=== PATIENT | female | born 1995 | race Caucasian/White ===

== ENCOUNTER → 2018-02-23 | Outpatient (CLI) | payer OTHER ==
--- NOTE | 2018-02-23 14:32 | RADIOLOGY REPORT (SQ) ---
EXAM DESCRIPTION: HYSTEROSALPINGOGRAM; HYSTERO CATH/INJECTION COMPLETED DATE/TIME: 02/23/2018 1:54 pm REASON FOR STUDY: INFERTILITY N97.9 FEMALE INFERTILITY, UNSPECIFIED COMPARISON: None. PROCEDURE: PRE-PROCEDURE: Procedure was explained to the patient. She was told to expect cramping du ring the procedure, and possible spotting post procedure. PROCEDURE: The cervix was prepped in sterile fashion. Under direct visual inspection, the cervix was cannulated with the hysterosalpingogram catheter and contrast injected. TECHNIQUE: Temporal fluoroscopic images acquired during the procedure stored to PACS. FLUOROSCOPY TIME: Less than 3 seconds 10 digital radiographic images saved to PACS. LIMITATIONS: None. FINDINGS: UTERUS: No identified anomalies. No synechia. RIGHT ADNEXA: Normal size fallopian tube. Free spill of contrast into the peritoneal cavity. LEFT ADNEXA: Normal size fallopian tube. Free spill of contrast into the peritoneal cavity. POST PROCEDURE: The patient tolerated the procedure with no adverse effects. IMPRESSION: NORMAL HYSTEROSALPINGOGRAM. COMMENT: Quality ID 145: Final reports for procedures using fluoroscopy that document radiation exp osure indices, or exposure time and number of fluorographic images (if radiation exposure indices are not available) TECHNICAL DOCUMENTATION: JOB ID: [id number] [employer]- All Rights Reserved Reading location - IP/workstation name: [email or web address]
--- NOTE | 2018-02-23 14:32 | RADIOLOGY REPORT (SQ) ---
EXAM DESCRIPTION: HYSTEROSALPINGOGRAM; HYSTERO CATH/INJECTION COMPLETED DATE/TIME: 02/23/2018 1:54 pm REASON FOR STUDY: INFERTILITY N97.9 FEMALE INFERTILITY, UNSPECIFIED COMPARISON: None. PROCEDURE: PRE-PROCEDURE: Procedure was explained to the patient. She was told to expect cramping du ring the procedure, and possible spotting post procedure. PROCEDURE: The cervix was prepped in sterile fashion. Under direct visual inspection, the cervix was cannulated with the hysterosalpingogram catheter and contrast injected. TECHNIQUE: Temporal fluoroscopic images acquired during the procedure stored to PACS. FLUOROSCOPY TIME: Less than 3 seconds 10 digital radiographic images saved to PACS. LIMITATIONS: None. FINDINGS: UTERUS: No identified anomalies. No synechia. RIGHT ADNEXA: Normal size fallopian tube. Free spill of contrast into the peritoneal cavity. LEFT ADNEXA: Normal size fallopian tube. Free spill of contrast into the peritoneal cavity. POST PROCEDURE: The patient tolerated the procedure with no adverse effects. IMPRESSION: NORMAL HYSTEROSALPINGOGRAM. COMMENT: Quality ID 145: Final reports for procedures using fluoroscopy that document radiation exp osure indices, or exposure time and number of fluorographic images (if radiation exposure indices are not available) TECHNICAL DOCUMENTATION: JOB ID: [id number] [employer]- All Rights Reserved Reading location - IP/workstation name: [email or web address]
== END ==
LOC: RAD 12:46
PROVIDERS: ATTEND Student in an Organized Health Care Education/Training Program
DX: N97.9 Female infertility, unspecified (principal)
CPT/HCPCS: 58340; 74740

== ENCOUNTER 2018-08-08 17:37 | Emergency (ER) | payer OTHER ==
--- NOTE | 2018-08-08 19:45 | ER Document Report ---
ED Medical Screen (RME) - General Chief Complaint: Vag Bleeding, +preg <12wks Stated Complaint: VAGINAL BLEEDING Time Seen by Provider: 08/08/18 19:37 Primary Care Provider: RUPESH KISER MD [Primary Care Provider] - Follow up as needed Mode of Arrival: Ambulatory Information source: Patient TRAVEL OUTSIDE OF THE [place] IN LAST 30 DAYS: No - HPI Notes: 08/08/18 19:45 23 yr old female 18 weeks 1 para 0 presents to the ED with complaints of 2 episodes of vaginal bleeding after urinating today, denies any vaginal cramping vaginal pain pelvic pain. Denies any nausea vomiting diarrhea, denies any trauma to abdomen, states she can feel baby moving, denies does not have a history of bleeding disorders, miscarriages. Patient is established with Dr. iKser at [facility] associated [employer]. Has any fevers chills, denies any trauma. exam: PHYSICAL EXAMINATION: ual. No wheezes rales or rhonchi. HEART: Regular rate and rhythm without murmurs ABDOMEN: Soft, nontender, nondistended abdomen. No guarding, no rebound. No masses appreciated. no cva tenderness on palpation Female : deferred labs initiated, u/s ob, heart rate and will be seen in main ER. pt is not in any distress. I have greeted and performed a rapid initial assessment of this patient. A comprehensive ED assessment and evaluation of the patient, analysis of test results and completion of medical decision making process will be conducted by an additional ED providers. - Related Data Allergies/Adverse Reactions: No Known Allergies Allergy (Verified 08/08/18 19:37) Physical Exam - Vital signs Vitals: Temp Pulse Resp BP Pulse Ox 97.8 F 118 H 20 134/74 H 99 08/08/18 17:47 08/08/18 17:47 08/08/18 17:47 08/08/18 17:47 08/08/18 17:47 Course - Vital Signs Vital signs: Temp Pulse Resp BP Pulse Ox 97.8 F 118 H 20 134/74 H 99 08/08/18 17:47 08/08/18 17:47 08/08/18 17:47 08/08/18 17:47 08/08/18 17:47 Doctor's Discharge - Discharge Referrals: RUPESH KISER MD [Primary Care Provider] - Follow up as needed
[2018-08-08 21:08] LABS: ABSOLUTE BASOPHILS # (AUTO) 0.1 10^3/uL (0.0-0.2); ABSOLUTE EOSINOPHILS # (AUTO) 0.1 10^3/uL (0.0-0.6); ABSOLUTE MONOCYTES (AUTO) 0.8 10^3/uL (0.1-1.4); ABSOLUTE NEUT (AUTO) 11.1 10^3/uL (1.7-8.2); BASOPHILS % (AUTO) 0.8 % (0-2); EOSINOPHILS % (AUTO) 0.5 % (0-6); HEMATOCRIT 33.8 % (36.0-47.0); HEMOGLOBIN 11.8 g/dL (12.0-15.5); LYMPHOCYTES % (AUTO) 19.6 % (13-45); MEAN CORPUSCULAR HEMOGLOBIN 28.2 pg (27.0-33.4); MEAN CORPUSCULAR HGB CONC 34.8 g/dL (32.0-36.0); MEAN CORPUSCULAR VOLUME 81 fl (80-97); MONOCYTES % (AUTO) 5.2 % (3-13); PLATELET COUNT 289 10^3/uL (150-450); RED BLOOD COUNT 4.17 10^6/uL (3.72-5.28); RED CELL DISTRIBUTION WIDTH 14.1 % (11.5-14.0); SEGMENTED NEUTROPHILS % (AUTO) 73.9 % (42-78); TOTAL CELLS COUNTED % (AUTO) 100 %; WHITE BLOOD COUNT 15.1 10^3/uL (4.0-10.5)
[2018-08-08 21:21] LABS: APPEARANCE,URINE CLEAR; BILIRUBIN,URINE NEGATIVE (NEGATIVE); COLOR,URINE YELLOW; GLUCOSE, URINE NEGATIVE (NEGATIVE); KETONES,URINE NEGATIVE (NEGATIVE); LEUKOCYTE ESTERASE,URINE NEGATIVE (NEGATIVE); NITRITE,URINE NEGATIVE (NEGATIVE); PROTEIN,URINE NEGATIVE (NEGATIVE)
[2018-08-08 21:28] LABS: ALANINE AMINOTRANSFERASE 59 U/L (9-52); ALBUMIN 3.7 g/dL (3.5-5.0); ALKALINE PHOSPHATASE 78 U/L (38-126); ANION GAP 8 (5-19); ASPARTATE AMINO TRANSFERASE 27 U/L (14-36); BILIRUBIN,DIRECT 0.2 mg/dL (0.0-0.4); BILIRUBIN,TOTAL 0.2 mg/dL (0.2-1.3); BLOOD UREA NITROGEN 11 mg/dL (7-20); CALCIUM 9.3 mg/dL (8.4-10.2); CARBON DIOXIDE 24 mmol/L (22-30); CHLORIDE 103 mmol/L (98-107); POTASSIUM 3.9 mmol/L (3.6-5.0); TOTAL PROTEIN 6.9 g/dL (6.3-8.2)
--- NOTE | 2018-08-08 22:14 | RADIOLOGY REPORT (SQ) ---
EXAM DESCRIPTION: US FOLLOW UP COMPLETED DATE/TME: 08/08/2018 19:47 CLINICAL HISTORY: 23 years, Female, 18w preg with vaginal bleeding COMPARISON: None. TECHNIQUE: Transabdominal ultrasound of the pelvis was performed. LIMITATIONS: None. FINDINGS: Cervix is closed, measuring 2.1 cm in length. Placenta is posterior, grade 1. presentation is breech. A single intrauterine is identified with measurements as follows: Head circumference: 16.38 cm heart rate: 165 bpm Femoral length: 2.63 cm Abdominal circumference: 14.05 cm Largest vertical pocket of amniotic fluid: 4.3 cm Both upper and lower extremities were visible. The bladder, stomach, and spine were also visible. Estimated gestational age is 18 weeks and 6 days. Ultrasound estimated date of delivery is 01/03/2019. IMPRESSION: Single viable intrauterine , as above. No acute sonographic abnormality. Continued routine surveillance is suggested. copyright 2010 [employer]- All Rights Reserved
[2018-08-08 22:16] LABS: GLUCOSE 68 mg/dL (75-110)
--- NOTE | 2018-08-08 23:00 | ER Document Report ---
ED General - General Chief Complaint: Vag Bleeding, +preg <12wks Stated Complaint: VAGINAL BLEEDING Time Seen by Provider: 08/08/18 19:37 Primary Care Provider: RUPESH KISER MD [Primary Care Provider] - Follow up as needed Mode of Arrival: Ambulatory Notes: Patient is a 23-year-old female at 18 weeks by ultrasound who presents with a small amount of vaginal bleeding that started approximately 1 hour prior to arrival. Bleeding has since stopped. No associated cramping or pain to the lower abdomen. No history of similar symptoms during this . Symptoms started abruptly, ended without intervention. No obvious triggering factor. Has not seen her [employer]IE REPA[employer] regarding today's concerns. Denies any trauma to the abdomen. Regards symptoms as being mild. TRAVEL OUTSIDE OF THE [place] IN LAST 30 DAYS: No - Related Data Allergies/Adverse Reactions: No Known Allergies Allergy (Verified 08/08/18 19:37) Past Medical History - General Information source: Patient - Social History Smoking Status: Never Smoker Frequency of alcohol use: None Drug Abuse: None Lives with: Spouse/Significant other Family History: Reviewed & Not Pertinent Patient has suicidal ideation: No Patient has homicidal ideation: No Renal/ Medical History: Denies: Hx Peritoneal Dialysis Review of Systems - Review of Systems Notes: Constitutional: Negative for fever. HENT: Negative for sore throat. Eyes: Negative for visual changes. Cardiovascular: Negative for chest pain. Respiratory: Negative for shortness of breath. Gastrointestinal: Negative for abdominal pain, vomiting or diarrhea. Genitourinary: Positive for vaginal bleeding Musculoskeletal: Negative for back pain. Skin: Negative for rash. Neurological: Negative for headaches, weakness or numbness. 10 point ROS negative except as marked above and in HPI. Physical Exam - Vital signs Vitals: Temp Pulse Resp BP Pulse Ox 97.8 F 118 H 20 134/74 H 99 08/08/18 17:47 08/08/18 17:47 08/08/18 17:47 08/08/18 17:47 08/08/18 17:47 Interpretation: Tachycardic Notes: PHYSICAL EXAMINATION: GENERAL: Well-appearing, well-nourished and in no acute distress. HEAD: Atraumatic, normocephalic. EYES: Pupils equal round and reactive to light, extraocular movements intact, sclera anicteric, conjunctiva are normal. ENT: nares patent, oropharynx clear without exudates. Moist mucous membranes. NECK: Normal range of motion, supple without lymphadenopathy LUNGS: Breath sounds clear to auscultation bilaterally and equal. No wheezes rales or rhonchi. HEART: Regular rate and rhythm without murmurs ABDOMEN: Soft, gravid uterus, nontender, normoactive bowel sounds. No guarding, no rebound. No masses appreciated. EXTREMITIES: Normal range of motion, no pitting or edema. No cyanosis. NEUROLOGICAL: No focal neurological deficits. Moves all extremities spontaneously and on command. PSYCH: Normal mood, normal affect. SKIN: Warm, Dry, normal turgor, no rashes or lesions noted. Course - Re-evaluation Re-evalutation: 08/08/18 23:00 Patient presents with a mild amount of vaginal bleeding in the setting of a second trimester . Ultrasound does demonstrate a viable intrauterine with active heart rate. No active bleeding at time of presentation. She is Rh positive. Patient's abdominal exam is otherwise benign without any focal tenderness. I do not suspect an acute appendicitis, pyelonephritis, cystitis, or bowel obstruction. At this time will discharge with return precautions and follow-up recommendations. Verbal discharge instructions given a the bedside and opportunity for questions given. Medication warnings reviewed. Patient is in agreement with this plan and has verbalized understanding of return precautions and the need for primary care follow-up in the next 24-72 hours. - Vital Signs Vital signs: Temp Pulse Resp BP Pulse Ox 97.8 F 118 H 20 134/74 H 99 08/08/18 17:47 08/08/18 17:47 08/08/18 17:47 08/08/18 17:47 08/08/18 17:47 - Laboratory Result Diagrams: 08/08/18 20:56 08/08/18 20:56 Laboratory results interpreted by me: 08/08/18 08/08/18 08/08/18 20:56 20:56 20:56 WBC 15.1 H Hgb 11.8 L Hct 33.8 L RDW 14.1 H Absolute Neutrophils 11.1 H Sodium 135.0 L Creatinine 0.46 L Glucose 68 L ALT 59 H Beta HCG, Quant 33693.00 H Urine Urobilinogen 2.0 H Urine Ascorbic Acid 40 H - Diagnostic Test Radiology reviewed: Reports reviewed Discharge - Discharge Clinical Impression: Vaginal bleeding during , Second trimester Condition: Good Disposition: HOME, SELF-CARE Additional Instructions: Your ultrasound today shows a living intrauterine . Please follow closely with your primary care [employer]. Please return if you develop severe abdominal pain, bleeding that goes through more than 2 pads for more than 2 hours, pass out, or have any other symptoms that are concerning to you. Please follow-up closely with your OBGYN regarding todays visit. Referrals: RUPESH KISER MD [Primary Care Provider] - Follow up as needed
[2018-08-08 23:11] VITALS: BP 128/72
== END 2018-08-08 23:07 | disposition home or self-care (01) ==
LOC: ER 17:37
DX: O46.92 Antepartum hemorrhage, unspecified, second trimester (principal); Z3A.18 18 weeks gestation of pregnancy
CPT/HCPCS: 36415; 76805; 80053; 81001; 82962; 84702; 85025; 86900; 86901; 93976; 99284

== ENCOUNTER 2018-09-22 13:14 | Emergency (ER) | payer OTHER ==
[2018-09-22] MEDS ORDERED: NORMAL SALINE 1000 ML 1,000 ML IV ONE ×2 (13:23→13:27)
[2018-09-22] MEDS ORDERED: METOCLOPRAMIDE HCL INJ/PF 10 MG/2 ML SDV IV ONE (13:27)
--- NOTE | 2018-09-22 13:29 | ER Document Report ---
ED Medical Screen (RME) - General Chief Complaint: Nausea/Vomiting Stated Complaint: VOMITING Time Seen by Provider: 09/22/18 13:21 Primary Care Provider: RUPESH KISER MD [Primary Care Provider] - Follow up as needed Notes: Patient is a 23-year-old female currently 25 weeks started with nausea vomiting around 1 AM. She has been unable to keep any fluids down since. Patient states she still feels the baby kicking and is denying any abdominal pain, vaginal discharge or bleeding. HEART: Tachycardic rate and rhythm. No murmur ABDOMEN: Soft, non-tender, obviously gravid. Non-distended. Bowel sounds present in all 4 quadrants. I have greeted and performed a rapid initial assessment of this patient. A comprehensive ED assessment and evaluation of the patient, analysis of test results and completion of the medical decision making process will be conducted by additional ED providers. This medical record was dictated with voice recognizing software. There may be grammatical, syntax errors that are unintended. TRAVEL OUTSIDE OF THE [place] IN LAST 30 DAYS: No - Related Data Allergies/Adverse Reactions: No Known Allergies Allergy (Verified 09/22/18 13:15) Past Medical History Renal/ Medical History: Denies: Hx Peritoneal Dialysis Physical Exam - Vital signs Vitals: Temp Pulse Resp BP Pulse Ox 98.2 F 133 H 20 134/77 H 98 09/22/18 13:19 09/22/18 13:19 09/22/18 13:19 09/22/18 13:19 09/22/18 13:19 Course - Vital Signs Vital signs: Temp Pulse Resp BP Pulse Ox 98.2 F 133 H 20 134/77 H 98 09/22/18 13:19 09/22/18 13:19 09/22/18 13:19 09/22/18 13:19 09/22/18 13:19 Doctor's Discharge - Discharge Referrals: RUPESH KISER MD [Primary Care Provider] - Follow up as needed
[2018-09-22 13:53] LABS: ABSOLUTE LYMPHOCYTES (AUTO) 0.8 10^3/uL (0.5-4.7); ABSOLUTE MONOCYTES (AUTO) 0.7 10^3/uL (0.1-1.4); ABSOLUTE NEUT (AUTO) 10.2 10^3/uL (1.7-8.2); BASOPHILS % (AUTO) 0.2 % (0-2); EOSINOPHILS % (AUTO) 0.1 % (0-6); HEMATOCRIT 33.2 % (36.0-47.0); HEMOGLOBIN 11.3 g/dL (12.0-15.5); LYMPHOCYTES % (AUTO) 7.1 % (13-45); MEAN CORPUSCULAR HEMOGLOBIN 27.4 pg (27.0-33.4); MEAN CORPUSCULAR HGB CONC 34.1 g/dL (32.0-36.0); MEAN CORPUSCULAR VOLUME 80 fl (80-97); MONOCYTES % (AUTO) 6.2 % (3-13); PLATELET COUNT 287 10^3/uL (150-450); RED BLOOD COUNT 4.14 10^6/uL (3.72-5.28); RED CELL DISTRIBUTION WIDTH 15.3 % (11.5-14.0); SEGMENTED NEUTROPHILS % (AUTO) 86.4 % (42-78); TOTAL CELLS COUNTED % (AUTO) 100 %; WHITE BLOOD COUNT 11.8 10^3/uL (4.0-10.5)
[2018-09-22 13:59] LABS: APPEARANCE,URINE SLIGHTLY-CLOUDY; BILIRUBIN,URINE NEGATIVE (NEGATIVE); COLOR,URINE YELLOW; GLUCOSE, URINE NEGATIVE (NEGATIVE); KETONES,URINE 20 mg/dL (NEGATIVE); LEUKOCYTE ESTERASE,URINE NEGATIVE (NEGATIVE); NITRITE,URINE NEGATIVE (NEGATIVE); PROTEIN,URINE 30 mg/dL (NEGATIVE); URINE SPECIFIC GRAVITY 1.025; UROBILINOGEN,URINE NEGATIVE mg/dL (<2.0)
[2018-09-22 14:16] LABS: ANION GAP 10 (5-19); BLOOD UREA NITROGEN 8 mg/dL (7-20); CALCIUM 8.9 mg/dL (8.4-10.2); CARBON DIOXIDE 25 mmol/L (22-30); CHLORIDE 103 mmol/L (98-107); GLUCOSE 85 mg/dL (75-110); POTASSIUM 3.8 mmol/L (3.6-5.0); SODIUM 137.8 mmol/L (137-145)
--- NOTE | 2018-09-22 14:16 | ER Document Report ---
ED General - General Chief Complaint: Nausea/Vomiting Stated Complaint: VOMITING Time Seen by Provider: 09/22/18 13:21 Primary Care Provider: RUPESH KISER MD [Primary Care Provider] - Follow up as needed Mode of Arrival: Ambulatory Information source: Patient TRAVEL OUTSIDE OF THE [place] IN LAST 30 DAYS: No - HPI Patient complains to provider of: Vomiting and Onset: This morning - 0100 Onset/Duration: Sudden Quality of pain: No pain Severity: None Pain Level: Denies Associated symptoms: None Exacerbated by: Denies Relieved by: Denies Similar symptoms previously: No Recently seen / treated by doctor: No Notes: 23-year-old female primigravida at 25 weeks gestation presents with intractable nausea and vomiting since 1:00 this morning. Patient feels like her heart is beating fast and she feels weak and dizzy. She does not have any previous history of nausea in this . She is not having any abdominal pain. Not having any vaginal bleeding. - Related Data Allergies/Adverse Reactions: No Known Allergies Allergy (Verified 09/22/18 13:15) Past Medical History - General Information source: Patient - Social History Smoking Status: Never Smoker Chew tobacco use (# tins/day): No Frequency of alcohol use: None Drug Abuse: None Family History: Reviewed & Not Pertinent Patient has suicidal ideation: No Patient has homicidal ideation: No Neurological Medical History: Reports: Hx Migraine Renal/ Medical History: Denies: Hx Peritoneal Dialysis Review of Systems - Review of Systems Notes: Constitutional: No fevers. No chills. EENT: No eye redness. No eye pain. No ear pain. No sore throat. Cardiovascular: No chest pain. No palpitations. Respiratory: No cough. No shortness of breath. No respiratory distress. Gastrointestinal: No abdominal pain. Positive nausea and vomiting. Negative diarrhea Genitourinary: Atraumatic. No lesions. No pain. No discharge. Musculoskeletal: Atraumatic. No swelling. No deformities. Skin: No rash or lesions. Lymphatic: No swollen lymph nodes. Neurologic: No headache. No syncope. Psychiatric: No suicidal or homicidal ideation. Physical Exam - Vital signs Vitals: Temp Pulse Resp BP Pulse Ox 98.2 F 133 H 20 134/77 H 98 09/22/18 13:19 09/22/18 13:19 09/22/18 13:19 09/22/18 13:19 09/22/18 13:19 - Notes Notes: General: Well-developed, well-nourished. In no acute distress. Non-toxic appearing. Cardiac: Well-perfused. Tachycardic with regular rhythm. No murmurs, rubs, or gallops. Pulmonary: No respiratory distress. No cyanosis. Bilateral lung calles are clear to auscultation. Abdominal: Gravid abdomen. Nontender bowel sounds present all 4 quadrants HEENT: Head is atraumatic. Conjunctivae not reddened. No tearing. PERRL. EOMI. Orbits atraumatic. No periorbital swelling or erythema. Oropharynx is without erythema, swelling, or exudates. Neck: Supple. No adenopathy. No meningismus. Dermatologic: Warm with good turgor. No rash. Atraumatic. Chest: Atraumatic. No chest wall tenderness to palpation. Musculoskeletal: Moves all extremities well. No range of motion deficits. no muscular or joint tenderness. No paraspinal muscle tenderness. no midline spinal tenderness or step-off. Genitourinary: Examination deferred Neurologic: No gross neurologic deficits. Psychiatric: Normal mood. Course - Re-evaluation Re-evalutation: 09/22/18 14:14 Patient with a sudden onset of vomiting in . She does not appear to be having any related complications at this time. She is tachycardic. We will follow through with orders that were given for Reglan and 2 L normal saline. We will check her labs and reassess shortly. 09/22/18 14:52 Feeling better. Drinking water with no complications. Heart rate is normal. R eviewed labs and those were normal. No electrolyte repletion necessary. Will discharge home on Reglan - Vital Signs Vital signs: Temp Pulse Resp BP Pulse Ox 99.0 F 99 16 121/67 98 09/22/18 14:33 09/22/18 14:33 09/22/18 14:33 09/22/18 14:33 09/22/18 14:33 - Laboratory Result Diagrams: 09/22/18 13:35 09/22/18 13:35 Laboratory results interpreted by me: 09/22/18 09/22/18 13:35 13:35 WBC 11.8 H Hgb 11.3 L Hct 33.2 L RDW 15.3 H Seg Neutrophils % 86.4 H Lymphocytes % 7.1 L Absolute Neutrophils 10.2 H Urine Protein 30 H Urine Ketones 20 H Discharge - Discharge Clinical Impression: Nausea and vomiting during Condition: Good Disposition: HOME, SELF-CARE Instructions: Antinausea Medication ([facility]), Intravenous (IV) Fluids ([facility]), Reglan ([facility]) Prescriptions: Metoclopramide HCl [Reglan 10 mg Tablet] 1 tab PO Q6HP PRN #20 tablet PRN Reason: Referrals: RUPESH KISER MD [Primary Care Provider] - Follow up as needed
[2018-09-22 14:34] VITALS: BP 121/67
== END 2018-09-22 15:25 | disposition home or self-care (01) ==
LOC: ER 13:14
DX: O21.2 Late vomiting of pregnancy (principal); O26.892 Other specified pregnancy related conditions, second trimester; R42 Dizziness and giddiness; R53.1 Weakness; R00.0 Tachycardia, unspecified; Z3A.25 25 weeks gestation of pregnancy
CPT/HCPCS: 99284; 96361; 96374; 36415; 85025; 80048; 81001; J2765; J7030

== ENCOUNTER 2018-09-23 21:22 | Emergency (ER) | payer OTHER ==
[2018-09-23 22:16] VITALS: BP 130/70
[2018-09-24] MEDS ORDERED: NORMAL SALINE 1000 ML 1,000 ML IV ONE (00:02)
--- NOTE | 2018-09-24 00:04 | ER Document Report ---
ED Medical Screen (RME) - General Chief Complaint: Nausea/Vomiting/Diarrhea Stated Complaint: VOMITING Time Seen by Provider: 09/24/18 00:01 Notes: 23-year-old female G1, P0 at 25 weeks gestation, chief complaint of diarrhea. States she was seen yesterday for vomiting, went home, vomiting resolved but today she has had at least 15 episodes of watery diarrhea. She denies any abdominal pain, fever, bleeding. She is feeling baby move. Denies recent antibiotics. TRAVEL OUTSIDE OF THE [place] IN LAST 30 DAYS: No - Related Data Allergies/Adverse Reactions: No Known Allergies Allergy (Verified 09/22/18 13:15) Past Medical History Neurological Medical History: Reports: Hx Migraine Renal/ Medical History: Denies: Hx Peritoneal Dialysis Physical Exam - Vital signs Vitals: Temp Pulse Resp BP Pulse Ox 98.2 F 114 H 22 H 130/70 H 99 09/23/18 22:14 09/23/18 22:14 09/23/18 22:14 09/23/18 22:14 09/23/18 22:14 - Cardiovascular Rhythm: Regular, Tachycardia Heart sounds: Normal auscultation, S1 appreciated, S2 appreciated - Abdominal Inspection: Gravid female Bowel sounds: Normal Tenderness: Nontender. No: Tender, Guarding Course - Re-evaluation Re-evalutation: Patient is tachycardic, presumably dehydrated. Well-appearing otherwise with no abdominal pain. As result she will have work-up and treatment here instead of labor and delivery at this time. I have greeted and performed a rapid initial assessment of this patient. A comprehensive ED assessment and evaluation of the patient, analysis of test results and completion of the medical decision making process will be conducted by additional ED providers. - Vital Signs Vital signs: Temp Pulse Resp BP Pulse Ox 98.2 F 114 H 22 H 130/70 H 99 09/23/18 22:14 09/23/18 22:14 09/23/18 22:14 09/23/18 22:14 09/23/18 22:14
[2018-09-24 00:15] LABS: ABSOLUTE BASOPHILS # (AUTO) 0.1 10^3/uL (0.0-0.2); ABSOLUTE LYMPHOCYTES (AUTO) 1.4 10^3/uL (0.5-4.7); ABSOLUTE MONOCYTES (AUTO) 0.9 10^3/uL (0.1-1.4); ABSOLUTE NEUT (AUTO) 8.8 10^3/uL (1.7-8.2); BASOPHILS % (AUTO) 0.5 % (0-2); EOSINOPHILS % (AUTO) 0.3 % (0-6); HEMATOCRIT 33.9 % (36.0-47.0); HEMOGLOBIN 11.4 g/dL (12.0-15.5); LYMPHOCYTES % (AUTO) 12.4 % (13-45); MEAN CORPUSCULAR HGB CONC 33.7 g/dL (32.0-36.0); MEAN CORPUSCULAR VOLUME 80 fl (80-97); MONOCYTES % (AUTO) 7.9 % (3-13); PLATELET COUNT 292 10^3/uL (150-450); RED BLOOD COUNT 4.23 10^6/uL (3.72-5.28); RED CELL DISTRIBUTION WIDTH 15.5 % (11.5-14.0); SEGMENTED NEUTROPHILS % (AUTO) 78.9 % (42-78); TOTAL CELLS COUNTED % (AUTO) 100 %; WHITE BLOOD COUNT 11.1 10^3/uL (4.0-10.5)
[2018-09-24 00:56] LABS: ANION GAP 10 (5-19); BLOOD UREA NITROGEN 6 mg/dL (7-20); CALCIUM 8.9 mg/dL (8.4-10.2); CARBON DIOXIDE 22 mmol/L (22-30); CHLORIDE 104 mmol/L (98-107); GLUCOSE 94 mg/dL (75-110); POTASSIUM 3.6 mmol/L (3.6-5.0); SODIUM 136.1 mmol/L (137-145)
--- NOTE | 2018-09-24 01:16 | ER Document Report ---
ED General - General Chief Complaint: Nausea/Vomiting/Diarrhea Stated Complaint: VOMITING Time Seen by Provider: 09/24/18 00:01 Primary Care Provider: RODRIGO MARCANO MD [Primary Care Provider] - Follow up as needed Notes: Patient is a 23-year-old female G1, P0 at 25 weeks who presents with nausea, vomiting and diarrhea. Patient was seen in the emergency yesterday for isolated vomiting. States the vomiting is overall much improved since yesterday but that she is now having persistent watery diarrhea. States that that symptoms started shortly after being discharged yesterday and has been ongoing since that time. States he has had at least 7 or 8 watery bowel movements since onset. No OB obvious exacerbating or relieving factor. Regards symptoms as being moderate to severe. Constant since onset. No known sick contacts. States that she continues to feel somewhat lightheaded if she goes from sitting to standing for. Denies any abdominal pain. No vaginal bleeding or discharge. No dysuria. No fever. TRAVEL OUTSIDE OF THE [place] IN LAST 30 DAYS: No - Related Data Allergies/Adverse Reactions: No Known Allergies Allergy (Verified 09/22/18 13:15) Past Medical History - General Information source: Patient - Social History Smoking Status: Never Smoker Chew tobacco use (# tins/day): No Frequency of alcohol use: None Drug Abuse: None Lives with: Spouse/Significant other Family History: Reviewed & Not Pertinent Patient has suicidal ideation: No Patient has homicidal ideation: No Neurological Medical History: Reports: Hx Migraine Renal/ Medical History: Denies: Hx Peritoneal Dialysis Review of Systems - Review of Systems Notes: Constitutional: Negative for fever. HENT: Negative for sore throat. Eyes: Negative for visual changes. Cardiovascular: Negative for chest pain. Respiratory: Negative for shortness of breath. Gastrointestinal: Negative for abdominal pain, positive for vomiting and diarrhea Genitourinary: Negative for dysuria. Musculoskeletal: Negative for back pain. Skin: Negative for rash. Neurological: Negative for headaches, weakness or numbness. 10 point ROS negative except as marked above and in HPI. Physical Exam - Vital signs Vitals: Temp Pulse Resp BP Pulse Ox 98.2 F 114 H 22 H 130/70 H 99 09/23/18 22:14 09/23/18 22:14 09/23/18 22:14 09/23/18 22:14 09/23/18 22:14 Interpretation: Tachycardic Notes: PHYSICAL EXAMINATION: GENERAL: Well-appearing, well-nourished and in no acute distress. HEAD: Atraumatic, normocephalic. EYES: Pupils equal round and reactive to light, extraocular movements intact, sclera anicteric, conjunctiva are normal. ENT: nares patent, oropharynx clear without exudates. Moist mucous membranes. NECK: Normal range of motion, supple without lymphadenopathy LUNGS: Breath sounds clear to auscultation bilaterally and equal. No wheezes rales or rhonchi. HEART: Regular rate and rhythm without murmurs ABDOMEN: Soft, gravid uterus, nontender, normoactive bowel sounds. No guarding, no rebound. No masses appreciated. EXTREMITIES: Normal range of motion, no pitting or edema. No cyanosis. NEUROLOGICAL: No focal neurological deficits. Moves all extremities spontaneously and on command. PSYCH: Normal mood, normal affect. SKIN: Warm, Dry, normal turgor, no rashes or lesions noted. Course - Re-evaluation Re-evalutation: 09/24/18 01:15 Patient presents with nausea, vomiting, diarrhea in the context of 25-week . Seen yesterday for isolated vomiting although developed diarrhea today. Patient has no focal abdominal tenderness on exam, active movement, heart rate 147 bpm. No vaginal bleeding or discharge. Labs without evidence of significant dehydration. Patient was initially tachycardic although resolved with IV fluid resuscitation. Has been able to tolerate oral fluids without difficulty. Suspect likely viral etiology given vomiting and diarrhea component. Very low clinical suspicion for appendicitis, biliary p athology, pink otitis, or alternative life-threatening or threatening apology given absence of abdominal pain, absence of fever, reassuring abdominal exam and history. At this time will discharge with return precautions and follow-up recommendations. Verbal discharge instructions given a the bedside and opportunity for questions given. Medication warnings reviewed. Patient is in agreement with this plan and has verbalized understanding of return precautions and the need for primary care follow-up in the next 24-72 hours. - Vital Signs Vital signs: Temp Pulse Resp BP Pulse Ox 98.2 F 114 H 22 H 130/70 H 99 09/23/18 22:14 09/23/18 22:14 09/23/18 22:14 09/23/18 22:14 09/23/18 22:14 - Laboratory Result Diagrams: 09/24/18 00:07 09/24/18 00:07 Laboratory results interpreted by me: 09/24/18 09/24/18 00:07 00:07 WBC 11.1 H Hgb 11.4 L Hct 33.9 L RDW 15.5 H Seg Neutrophils % 78.9 H Lymphocytes % 12.4 L Absolute Neutrophils 8.8 H Sodium 136.1 L BUN 6 L Discharge - Discharge Clinical Impression: Diarrhea during , Vomiting during Condition: Good Disposition: HOME, SELF-CARE Additional Instructions: Your symptoms are likely due to a viral illness and should resolve in the next several days. Continue to stay hydrated with plenty of solution such as Gatorade or Pedialyte. Your labs are otherwise reassuring today. Your heart rate is within normal ranges. Please return if you develop severe abdominal pain, pass out, become unable to tolerate any oral fluids for 12 more hours, or any other symptoms that are concerning to you. Referrals: RODRIGO MARCANO MD [Primary Care Provider] - Follow up as needed
== END 2018-09-24 01:43 | disposition home or self-care (01) ==
LOC: ER 21:22
DX: O21.2 Late vomiting of pregnancy (principal); Z3A.25 25 weeks gestation of pregnancy; O98.512 Other viral diseases complicating pregnancy, second trimester
CPT/HCPCS: 99284; 96360; 36415; 85025; 80048; J7030

== ENCOUNTER 2018-12-23 20:51 | Outpatient (CLI) | payer OTHER ==
[2018-12-23 21:39] LABS: APPEARANCE,URINE SLIGHTLY-CLOUDY; BILIRUBIN,URINE NEGATIVE (NEGATIVE); COLOR,URINE YELLOW; GLUCOSE, URINE NEGATIVE (NEGATIVE); KETONES,URINE NEGATIVE (NEGATIVE); LEUKOCYTE ESTERASE,URINE NEGATIVE (NEGATIVE); NITRITE,URINE NEGATIVE (NEGATIVE); PROTEIN,URINE NEGATIVE (NEGATIVE); UROBILINOGEN,URINE NEGATIVE mg/dL (<2.0)
[2018-12-23 22:05] LABS: URINE AMPHETAMINES SCREEN NEGATIVE; URINE BARBITURATES SCREEN NEGATIVE; URINE BENZODIAZEPINES SCREEN NEGATIVE; URINE COCAINE SCREEN NEGATIVE; URINE MARIJUANA (THC) SCREEN NEGATIVE; URINE METHADONE SCREEN NEGATIVE; URINE PHENCYCLIDINE SCREEN NEGATIVE
== END 2018-12-23 23:22 | disposition home or self-care (01) ==
LOC: LC 20:51
PROVIDERS: ATTEND Obstetrics & Gynecology
PROC: 4A1HXCZ Monitoring of Products of Conception, Cardiac Rate, External Approach (ICD-10-PCS; principal; 2018-12-23)
DX: O47.1 False labor at or after 37 completed weeks of gestation (principal); Z3A.38 38 weeks gestation of pregnancy
CPT/HCPCS: 59025; 80307; 81005; 84112

== ENCOUNTER 2018-12-26 15:38 | Inpatient (IN) | payer OTHER ==
[2018-12-26] MEDS ORDERED: DINOPROSTONE 10 MG VAGINAL INSERT.SR PV PRN (15:49)
[2018-12-26] MEDS ORDERED: RINGERS SOLUTION,LACTATED 1,000 ML IV PRN (15:49)
[2018-12-26] MEDS ORDERED: OXYTOCIN/NORMAL SALINE 20 UNIT/1,000 ML RTUINJ IV PRN (15:49)
[2018-12-26] MEDS ORDERED: RINGERS SOLUTION,LACTATED 300 ML IV ONE (15:49)
--- NOTE | 2018-12-26 15:57 | Non Stress Test Report ---
Non Stress Test Datetime Report Generated by CPN: 12/26/2018 15:57 DEMOGRAPHIC EGA NST: 38.1 INDICATION Indication for Study: Ordered by Provider URINE RESULTS Urine Protein, NST: Negative Urine Ketones - NST: Negative Urine Glucose - NST: Negative Urine Blood - NST: Negative MONITORING Monitor Explained: Monitor Explained; Test Explained; Patient Verbalized Understanding Time on Monitor: 12/23/2018 21:27 Time off Monitor: 12/23/2018 22:36 NST Duration: 69 NST INTERVENTIONS NST Interventions: PO Hydration Physician Notified NST: Dr. Junior BABY A: [id number] BABY A Movement : Present Contraction Frequency : Irregular FHR Baseline : 135 Accelerations : 15X15 Decelerations : None Variability : Moderate 6-25bpm NST Review: Meets Criteria for Reactive NST NST Review and Verified By : Jose Le RN NST Results: Reactive NST REPORT Report Trigger: Send Report
--- NOTE | 2018-12-26 16:22 | Admission Physical ---
Datetime Report Generated by CPN: 12/26/2018 16:22 CURRENT ADMISSION Hx Assessment: The History has been Reviewed and is Current Chief Complaint: Signs/Symptoms Gestational HTN Indication for Induction: Gestational HTN Admit Impression : Term, Intrauterine ; No Active Labor; Intact Membranes; Induction of Labor Admit Plan: Admit to Unit; Initiate Labor Induction Protocol ALLERGIES Medication Allergies: No Medication Allergies: No Known Allergies (12/23/2018) Latex: No Latex Allergies OBSTETRICAL HISTORY EDC: 01/05/2019 00:00 : 1 Para: 0 Term: 0 : 0 SAB: 0 IAB: 0 Ectopic: 0 Livin Cesareans: 0 VBACs: 0 Multiple Births: 0 Gestational Diabetes: Unknown Rh Sensitization: No Incompetent Cervix: No MICK: No Infertility: Yes ART Treatment: No Uterine Anomaly: No IUGR: No Hx Previous C/S: No Macrosomia: No Hx Loss/Stillborn: No PIH: No Hx : No Placenta Previa/Abruption: No Depression/PP Depression: No PTL/PROM: No Post Hemorrhage: No Current Procedures: Ultrasound Obstetrical History Comments: G1: current (clomid and metformin for infertility; possible GDM?) MEDICAL HISTORY Diabetes: Unknown Diabetes Type: Gestational Diabetes Blood Transfusion: No Pulmonary Disease (Asthma, TB): No Breast Disease: No Hypertension: No Family Services Coordinator Surgery: No Heart Disease: No Hosp/Surgery: No Autoimmune Disorder: No Anesthetic Complications: No Kidney Disease: No Abnormal Pap Smear: No Neuro/Epilepsy: No Psychiatric Disorders: No Other Medical Diseases: Yes Hepatitis/Liver Disease: No Significant Family History: No Varicosities/Phlebitis: No Trauma/Violence : No Thyroid Dysfunction: No Medical History Comments: PCOS INFECTIOUS HISTORY Gonorrhea: No Genital Herpes: No Chlamydia: No Tuberculosis: No Syphilis: No Hepatitis: No HIV/AIDS Exposure: No Rash or Viral Illness: No HPV: No PHYSICAL EXAM General: Normal HEENT: Deferred Neurologic: Normal Thyroid: Deferred Heart: Normal Lungs: Normal Breast: Deferred Back: Normal Abdomen: Normal Genitourinary Exam: Normal Extremities: Normal DTRs: Normal Pelvic Type: Adequate Physical Exam Comments: G1, 38+3 admitted for IOL Baby at 97th % tile PCOS Progesterone until 16 weeks Twin , no YS or disc at 7 weeks Vomited 3 hr, has been checking BS, all nl Obesity FETUS A EGA: 38.4 Monitoring: External US Variability: Moderate 6-25bpm Decelerations: None Admit Comment: Admited to LD from [facility] for IOL per Dr. Gold, Cervidil tonight, Consents signed, Pt and [facility]sb aware of POC, pt has plan, does not want students in room for delivery Cat 1 strip, no uc's, GBS neg PLANS FOR LABOR AND DELIVERY Labor and Delivery: None Pain Management: Epidural Circumcision: Yes INFORMED CONSENT Assignment: Elodia Junior MD Signature: with User ID: Franc : with User ID: Franc
[2018-12-26 16:39] LABS: ABSOLUTE LYMPHOCYTES (AUTO) 1.9 10^3/uL (0.5-4.7); ABSOLUTE MONOCYTES (AUTO) 0.8 10^3/uL (0.1-1.4); BASOPHILS % (AUTO) 0.2 % (0-2); EOSINOPHILS % (AUTO) 0.4 % (0-6); HEMATOCRIT 30.9 % (36.0-47.0); HEMOGLOBIN 10.4 g/dL (12.0-15.5); LYMPHOCYTES % (AUTO) 16.3 % (13-45); MEAN CORPUSCULAR HEMOGLOBIN 27.1 pg (27.0-33.4); MEAN CORPUSCULAR HGB CONC 33.6 g/dL (32.0-36.0); MEAN CORPUSCULAR VOLUME 81 fl (80-97); MONOCYTES % (AUTO) 6.6 % (3-13); PLATELET COUNT 254 10^3/uL (150-450); RED BLOOD COUNT 3.82 10^6/uL (3.72-5.28); SEGMENTED NEUTROPHILS % (AUTO) 76.5 % (42-78); TOTAL CELLS COUNTED % (AUTO) 100 %; WHITE BLOOD COUNT 11.8 10^3/uL (4.0-10.5)
[2018-12-26 17:02] LABS: ALBUMIN 3.2 g/dL (3.5-5.0); ALKALINE PHOSPHATASE 146 U/L (38-126); ANION GAP 7 (5-19); ASPARTATE AMINO TRANSFERASE 17 U/L (14-36); BILIRUBIN,DIRECT 0.1 mg/dL (0.0-0.4); BILIRUBIN,TOTAL 0.2 mg/dL (0.2-1.3); BLOOD UREA NITROGEN 7 mg/dL (7-20); CALCIUM 9.6 mg/dL (8.4-10.2); CARBON DIOXIDE 24 mmol/L (22-30); CHLORIDE 105 mmol/L (98-107); GLUCOSE 122 mg/dL (75-110); TOTAL PROTEIN 5.8 g/dL (6.3-8.2); URIC ACID 4.5 mg/dL (2.5-6.2)
[2018-12-26 17:32] LABS: APPEARANCE,URINE CLEAR; BILIRUBIN,URINE NEGATIVE (NEGATIVE); COLOR,URINE STRAW; GLUCOSE, URINE NEGATIVE (NEGATIVE); KETONES,URINE NEGATIVE (NEGATIVE); LEUKOCYTE ESTERASE,URINE NEGATIVE (NEGATIVE); NITRITE,URINE NEGATIVE (NEGATIVE); PROTEIN,URINE NEGATIVE (NEGATIVE); URINE SPECIFIC GRAVITY 1.006; UROBILINOGEN,URINE NEGATIVE mg/dL (<2.0)
[2018-12-26 17:47] LABS: URINE AMPHETAMINES SCREEN NEGATIVE; URINE BARBITURATES SCREEN NEGATIVE; URINE BENZODIAZEPINES SCREEN NEGATIVE; URINE COCAINE SCREEN NEGATIVE; URINE MARIJUANA (THC) SCREEN NEGATIVE; URINE METHADONE SCREEN NEGATIVE; URINE PHENCYCLIDINE SCREEN NEGATIVE
[2018-12-26 17:53] LABS: UR PRO/CREAT RATIO RESULT 0.5 mg/mg (0.0-0.2); URINE PROTEIN 19.9 mg/dL (<12)
--- NOTE | 2018-12-26 18:36 | RADIOLOGY REPORT (SQ) ---
EXAM DESCRIPTION: U/S OB LIMITED COMPLETED DATE/TIME: 12/26/2018 6:18 pm REASON FOR STUDY: EFW GROWTH COMPARISON: 08/08/2018 TECHNIQUE: Limited transabdominal grayscale ultrasound for evaluation of specific requested obstetri manan parameters. LIMITATIONS: None. FINDINGS: CERVICAL LENGTH: Not measured. Closed. TAYLOR: 3.8 cm. FHR: 136 beats per minute. PRESENTATION: Cephalic. PLACENTA: Fundal grade 2. ANATOMY: Not assessed OTHER: Estimated body weight 3607 g., 7 lb 15 oz. Gestation 40 weeks 0 days. IMPRESSION: Term gestation with measured parameters as above. TECHNICAL DOCUMENTATION: JOB ID: [id number] [employer]- All Rights Reserved Reading location - IP/workstation name: [email or web address]
[2018-12-26] MEDS ORDERED: DINOPROSTONE 10 MG VAGINAL INSERT.SR ONE (18:50)
[2018-12-26] MEDS ORDERED: ACETAMINOPHEN 325 MG TABLET PO ONE (21:38)
[2018-12-26] MEDS ORDERED: ACETAMINOPHEN 325 MG TABLET ONE (21:42)
[2018-12-26] MEDS ORDERED: ZOLPIDEM TARTRATE 5 MG TABLET ONE (21:43)
[2018-12-27] MEDS ORDERED: LIDOCAINE 1% INJ-PF (10 MG/ML) 30 ML SDV ONE (11:45)
[2018-12-27] MEDS ORDERED: MISOPROSTOL 0.2 MG TABLET ONE (11:45)
[2018-12-27] MEDS ORDERED: OXYTOCIN 10 UNIT/ML VIAL ONE ×2 (11:45→23:20)
[2018-12-27] MEDS ORDERED: OXYTOCIN/NORMAL SALINE 20 UNIT/1,000 ML RTUINJ ONE (11:46)
[2018-12-27 13:12] LABS: ABSOLUTE LYMPHOCYTES (AUTO) 1.7 10^3/uL (0.5-4.7); ABSOLUTE MONOCYTES (AUTO) 0.8 10^3/uL (0.1-1.4); BASOPHILS % (AUTO) 0.2 % (0-2); EOSINOPHILS % (AUTO) 0.3 % (0-6); HEMATOCRIT 30.7 % (36.0-47.0); HEMOGLOBIN 10.4 g/dL (12.0-15.5); LYMPHOCYTES % (AUTO) 14.4 % (13-45); MEAN CORPUSCULAR HEMOGLOBIN 27.3 pg (27.0-33.4); MEAN CORPUSCULAR HGB CONC 33.8 g/dL (32.0-36.0); MEAN CORPUSCULAR VOLUME 81 fl (80-97); MONOCYTES % (AUTO) 6.9 % (3-13); PLATELET COUNT 248 10^3/uL (150-450); SEGMENTED NEUTROPHILS % (AUTO) 78.2 % (42-78); TOTAL CELLS COUNTED % (AUTO) 100 %; WHITE BLOOD COUNT 11.5 10^3/uL (4.0-10.5)
[2018-12-27 13:26] LABS: ALBUMIN 3.1 g/dL (3.5-5.0); ALKALINE PHOSPHATASE 142 U/L (38-126); ANION GAP 9 (5-19); ASPARTATE AMINO TRANSFERASE 17 U/L (14-36); BILIRUBIN,DIRECT 0.1 mg/dL (0.0-0.4); BILIRUBIN,TOTAL 0.2 mg/dL (0.2-1.3); BLOOD UREA NITROGEN 6 mg/dL (7-20); CALCIUM 8.8 mg/dL (8.4-10.2); CARBON DIOXIDE 21 mmol/L (22-30); CHLORIDE 106 mmol/L (98-107); GLUCOSE 94 mg/dL (75-110); POTASSIUM 3.5 mmol/L (3.6-5.0); TOTAL PROTEIN 5.6 g/dL (6.3-8.2); URIC ACID 4.5 mg/dL (2.5-6.2)
[2018-12-27] MEDS ORDERED: EPHEDRINE SULFATE INJ 50 MG/1 ML AMPULE ONE (15:05)
[2018-12-27] MEDS ORDERED: FENTANYL/BUPIVACAINE/NS/PF 300 MCG/150 ML RTUINJ EPI ONE (15:05)
[2018-12-27] MEDS ORDERED: BUPIVACAINE HCL 0.25 % INJ/PF (2.5 MG/1 ML) 30 ML VIAL ONE (15:06)
[2018-12-27] MEDS ORDERED: LIDOCAINE 2% INJ-PF (20 MG/ML) 10 ML AMPUL ONE ×2 (16:26→18:42)
[2018-12-27] MEDS ORDERED: NALBUPHINE HCL INJ 10 MG/1 ML AMPULE ONE (17:02)
[2018-12-27] MEDS ORDERED: NALBUPHINE HCL INJ 10 MG/1 ML AMPULE INJ ONE (17:03)
[2018-12-27] MEDS ORDERED: FENTANYL CITRATE INJ/PF 100 MCG/2 ML AMPUL ONE (19:59)
[2018-12-27] MEDS ORDERED: FENTANYL CITRATE INJ/PF 100 MCG/2 ML AMPUL IV ONE (20:01)
[2018-12-27] MEDS ORDERED: IBUPROFEN 800 MG TABLET ONE (23:42)
[2018-12-28] MEDS ORDERED: GLYCERIN/WITCH HAZEL LEAF 1 EACH MED..WIPE TP PRN (00:15)
[2018-12-28] MEDS ORDERED: PROMETHAZINE HCL 25 MG SUPP.RECT PR PRN (00:15)
[2018-12-28] MEDS ORDERED: MISOPROSTOL 0.2 MG TABLET PR PRN (00:15)
[2018-12-28] MEDS ORDERED: DIPH/PERTUSS(ACELL)/TETANUS VAC/PF 0.5 ML SYR (>=10YO) IM PRN (00:15)
[2018-12-28] MEDS ORDERED: ACETAMINOPHEN WITH CODEINE #3 TABLET PO PRN (00:15)
[2018-12-28] MEDS ORDERED: DIBUCAINE 1% OINTMENT 56 GM TP PRN (00:15)
[2018-12-28] MEDS ORDERED: PSEUDOEPHEDRINE HCL 30 MG TABLET PO PRN (00:15)
[2018-12-28] MEDS ORDERED: OXYTOCIN/NORMAL SALINE 20 UNIT/1,000 ML RTUINJ IV PRN (00:15)
[2018-12-28] MEDS ORDERED: MEASLES,MUMPS&RUBELLA VACC/PF 0.5 ML VIAL SUBCUT PRN (00:15)
[2018-12-28] MEDS ORDERED: ZOLPIDEM TARTRATE 5 MG TABLET PO PRN (00:15)
[2018-12-28] MEDS ORDERED: PROMETHAZINE HCL INJ 25 MG/1 ML VIAL IV PRN (00:15)
[2018-12-28] MEDS ORDERED: ACETAMINOPHEN 325 MG TABLET PO PRN (00:15)
[2018-12-28] MEDS ORDERED: DIPHENHYDRAMINE HCL 25 MG CAPSULE PO PRN (00:15)
[2018-12-28] MEDS ORDERED: PROMETHAZINE HCL 25 MG TABLET PO PRN (00:15)
[2018-12-28] MEDS ORDERED: BENZOCAINE/MENTHOL AEROSOL SPRAY 56 ML TOP PRN (00:15)
[2018-12-28] MEDS ORDERED: NA PHOS,M-B/NA PHOS,DI-BA (ADULT) 133 ML ENEMA PR PRN (00:15)
[2018-12-28] MEDS ORDERED: MAGNESIUM HYDROXIDE SUSP 30 ML UDCUP PO PRN (00:15)
[2018-12-28] MEDS ORDERED: ACETAMINOPHEN WITH CODEINE #3 TABLET ONE (02:10)
--- NOTE | 2018-12-28 03:19 | Warning Signs in Babies ---
VOD Warning Signs Datetime Report Generated by [facility]: 12/28/2018 03:19 VOD#608 -Warning Signs in Babies: Viewed with Parent(s)/Family (12/23/2018 21:31:Trina Abdalla RN)
[2018-12-28] MEDS ORDERED: IBUPROFEN 800 MG TABLET ONE ×3 (05:31→14:08)
[2018-12-28] MEDS: IBUPROFEN 800 MG TABLET PO SCH ×3 (05:32→21:27)
[2018-12-28 08:05] LABS: HEMATOCRIT 27.1 % (36.0-47.0); HEMOGLOBIN 9.2 g/dL (12.0-15.5); MEAN CORPUSCULAR HEMOGLOBIN 27.5 pg (27.0-33.4); MEAN CORPUSCULAR HGB CONC 34.1 g/dL (32.0-36.0); MEAN CORPUSCULAR VOLUME 81 fl (80-97); PLATELET COUNT 260 10^3/uL (150-450); RED BLOOD COUNT 3.36 10^6/uL (3.72-5.28); RED CELL DISTRIBUTION WIDTH 17.1 % (11.5-14.0); WHITE BLOOD COUNT 20.8 10^3/uL (4.0-10.5)
[2018-12-28 08:29] LABS: ABSOLUTE LYMPHOCYTES# (MANUAL) 1.9 10^3/uL (0.5-4.7); BAND NEUTROPHILS % (MANUAL) 1 % (3-5); BASOPHILS % (MANUAL) 1 % (0-2); EOSINOPHILS % (MANUAL) 0 % (0-6); LYMPHOCYTES % (MANUAL) 8 % (13-45); METAMYELOCYTES % (MANUAL) 1 % (0); MONOCYTES % (MANUAL) 5 % (3-13); SEGMENTED NEUTROPHILS % (MAN) 83 % (42-78); TOTAL CELLS COUNTED 100
[2018-12-28 08:30] LABS: ANISOCYTOSIS 1+; PLATELET COMMENT ADEQUATE; POLYCHROMASIA SLIGHT
[2018-12-28] MEDS ORDERED: SENNOSIDES/DOCUSATE 8.6-50 MG 1 EACH TABLET ONE (10:07)
[2018-12-28] MEDS ORDERED: DOCUSATE SODIUM 100 MG CAPSULE ONE ×2 (10:07→14:08)
[2018-12-28] MEDS ORDERED: FAMOTIDINE 20 MG TABLET ONE (10:07)
[2018-12-28] MEDS ORDERED: PRENATAL VITAMIN W DHA CAPSULE PO ONE (10:07)
[2018-12-28] MEDS ORDERED: FERROUS SULFATE 325 MG TABLET PO ONE ×2 (10:08→14:09)
[2018-12-28] MEDS: FERROUS SULFATE 325 MG TABLET PO SCH ×2 (10:09→18:24)
[2018-12-28] MEDS: SENNOSIDES/DOCUSATE 8.6-50 MG 1 EACH TABLET PO SCH (10:09)
[2018-12-28] MEDS: PRENATAL VITAMIN W DHA CAPSULE PO SCH (10:09)
[2018-12-28] MEDS: DOCUSATE SODIUM 100 MG CAPSULE PO SCH ×2 (10:09→18:25)
[2018-12-28] MEDS: FAMOTIDINE 20 MG TABLET PO SCH ×2 (10:10→21:27)
--- NOTE | 2018-12-28 14:23 | PDOC PROGRESS REPORT ---
Subjective-OB Progress Note for:: 12/28/18 Physical Exam (OB) Vital Signs: Intake & Output 12/27/18 12/28/18 12/29/18 06:59 06:59 06:59 Weight 107 kg - General General Appearance: Sleeping/easily aroused - PIH/Pre-Eclampsia DTR's: 2 + Clonus: Negative Headache: Absent Epigastric Pain: No Visual Changes: No - Lochia Lochia Amount: Small 10-25 ml - Abdomen Description: Soft, Round Hernia Present: No Bowel Sounds: Normoactive Flatus Presence: Present Stool: No Fundal Description: Firm Objective-Diagnostic Laboratory: 12/28/18 07:25 12/27/18 12:27 12/28/18 07:25 WBC 20.8 H RBC 3.36 L Hgb 9.2 L Hct 27.1 L MCV 81 MCH 27.5 MCHC 34.1 RDW 17.1 H Plt Count 260 Seg Neutrophils % Not Reportable
[2018-12-28] MEDS: ACETAMINOPHEN WITH CODEINE #3 TABLET PO PRN (19:06)
[2018-12-28] MEDS: ZOLPIDEM TARTRATE 5 MG TABLET PO SCH ×2 (19:09→21:17)
[2018-12-29] MEDS: ACETAMINOPHEN WITH CODEINE #3 TABLET PO PRN (02:20)
[2018-12-29] MEDS: IBUPROFEN 800 MG TABLET PO SCH ×2 (06:02→14:14)
[2018-12-29 08:17] VITALS: BP 117/70
[2018-12-29 09:19] LABS: HEMATOCRIT 25.4 % (36.0-47.0); HEMOGLOBIN 8.4 g/dL (12.0-15.5); MEAN CORPUSCULAR HEMOGLOBIN 27.2 pg (27.0-33.4); MEAN CORPUSCULAR VOLUME 82 fl (80-97); PLATELET COUNT 190 10^3/uL (150-450); RED BLOOD COUNT 3.09 10^6/uL (3.72-5.28); WHITE BLOOD COUNT 12.1 10^3/uL (4.0-10.5)
[2018-12-29] MEDS: DOCUSATE SODIUM 100 MG CAPSULE PO SCH ×2 (09:47→17:59)
[2018-12-29] MEDS: FERROUS SULFATE 325 MG TABLET PO SCH ×2 (09:47→17:59)
[2018-12-29] MEDS: SENNOSIDES/DOCUSATE 8.6-50 MG 1 EACH TABLET PO SCH (09:47)
[2018-12-29] MEDS: PRENATAL VITAMIN W DHA CAPSULE PO SCH (09:47)
[2018-12-29] MEDS: FAMOTIDINE 20 MG TABLET PO SCH (09:49)
--- NOTE | 2018-12-29 13:08 | PDOC DISCHARGE SUMMARY ---
Final Diagnosis Discharge Date: 12/29/18 - Final Diagnosis (1) Obstetrical high vaginal laceration, delivered Is this a current diagnosis for this admission?: Yes (2) Vaginal delivery Is this a current diagnosis for this admission?: Yes (3) Pre-eclampsia Is this a current diagnosis for this admission?: Yes Discharge Data - Discharge Medication Prescriptions: Ibuprofen [Motrin 800 mg Tablet] 800 mg PO Q8HP PRN #60 tablet PRN Reason: Home Medications: Vits96/Iron Fum/Folic [ Tablet] 1 each PO DAILY 12/23/18 Ibuprofen [Motrin 800 mg Tablet] 800 mg PO Q8HP PRN #60 tablet 12/29/18 Reason(s) for Admission: Induction of Labor Procedures: NST Intrapartum Procedure(s): Spontaneous Vaginal Delivery Complication(s): Laceration-Vaginal - Diagnosis Test Laboratory: Temp Pulse Resp BP Pulse Ox 97.9 F 99 14 117/70 100 12/29/18 08:00 12/29/18 08:00 12/29/18 08:00 12/29/18 08:00 12/29/18 08:00 12/26/18 12/26/18 12/27/18 15:50 16:20 12:27 RBC 3.82 3.80 Hgb 10.4 L 10.4 L Hct 30.9 L 30.7 L Urine Opiates Screen NEGATIVE 12/28/18 12/29/18 07:25 08:08 RBC 3.36 L 3.09 L Hgb 9.2 L 8.4 L Hct 27.1 L 25.4 L Urine Opiates Screen - Discharge information/Instructions Discharge Activity: Balance Activity w/Rest, Pelvic Rest Discharge Diet: Regular Disposition: HOME, SELF-CARE Follow up with: [facility] in: 1, Weeks
--- NOTE | 2019-01-01 14:47 | Delivery Summary ---
Del Sum A-C Datetime Report Generated by CPN: 01/01/2019 14:47 DELIVERY PERSONNEL DELIVERY PERSONNEL: [id number] Delivery Doctor:: Gricel Gold MD Anesthesiologist:: Lasha Farnsworth MD Labor and Delivery Nurse:: Trina Abdalla RN Labor and Delivery Nurse:: Suzanne Rosales RN Esthetician/Owner/LINE ERECTOR: Michelleeric Daly, PRINTED FORMS PROOFREADER MATERNAL INFORMATION Delivery Anesthesia: Epidural Medications After Delivery: Pitocin 10 Units IM; Pitocin Bolus-Please Comment; Cytotec 1000mcg Per Rectum/Vagina Meds After Delivery Comment: Pitocin 20 units in 1 L NS bolusing per order Estimated Blood Loss (ml): 270 Delivery QBL: 273 Delivery QBL Comment: 270 Maternal Complications: None Provider Comments: VMI delivered in [place] presentation. loose nuchal cord easily reduced. Shoulders and body delivered without difficulty. Cord doubly clamped and cut and to maternal abdomen. Placenta delivered intact spontaneously. FF at U. Left vaginal sidewall repaired. Uterine atony noted and cytotec 1000mcg per rectum placed. Good hemostasis. Mother and baby stable upon provider leaving the room LABOR SUMMARY EDC: 01/05/2019 00:00 No. Babies in Womb: 1 Attempted: No Labor Anesthesia: Epidural LABOR INFORMATION Reason for Induction: Gestational Hypertension; Pre-Eclampsia Onset of Labor: 12/27/2018 15:00 Complete Dilatation: 12/27/2018 21:31 Cervical Ripening Agents: Cervidil Other Ripening Agents: Cooks catheter Oxytocin: Induction Group B Beta Strep: Negative Antibiotics # of Doses: 0 Antibiotics Time of Last Dose: N/A Name of Antibiotic Given: N/A Steroids Given: None Reason Steroids Not Administered: Not Applicable MEMBRANES Membranes Rupture Method: Artificial Rupture of Membranes: 12/27/2018 16:59 Length of Rupture (hr): 6.27 Amniotic Fluid Color: Clear Amniotic Fluid Amount: Small Amniotic Fluid Odor: Normal STAGES OF LABOR Stage 1 hr: 6 Stage 1 min: 31 Stage 2 hr: 1 Stage 2 min: 44 Stage 3 hr: 24 Stage 3 min: 3 Total Time in Labor hr: 32 Total Time in Labor min: 18 VAGINAL DELIVERY Episiotomy: None Laceration #1: Vaginal Other Laceration: left vaginal sidewall Laceration Repair: Yes Laceration Repair Note: left vaginal sidewall laceration repaired with good hemostasis Sponge Count Correct: Yes Sharps Count Correct: Yes CSECTION DELIVERY Primary Indication: N/A Secondary Indication: N/A CSection Incidence: N/A Labor: N/A Elective: N/A CSection Incision: N/A BABY A INFORMATION Delivery Date/Time: 12/27/2018 23:15 Method of Delivery: Vaginal Method of Delivery: Vaginal Born in Route : No : N/A Forceps: N/A Vacuum Extraction: N/A Shoulder Dystocia : No PRESENTATION/POSITION BABY A Presentation: Cephalic Presentation: Cephalic Presentation: Cephalic Cephalic Presentation: Vertex Vertex Position: Left Occipital Anterior Breech Presentation: N/A PLACENTA INFORMATION BABY A Placenta Delivery Time : 12/28/2018 23:18 Placenta Method of Delivery: Spontaneous Placenta Status: Delivered SCORES BABY A Heart Rate 1 min: >100 bpm Resp Effort 1 min: Good Cry Reflex Irritability 1 min: Cough or Sneeze or Pulls Away Muscle Tone 1 min: Active Motion Color 1 min: Blue/Pale Resuscitation Effort 1 min: Tactile Stimulation SCORE 1 MIN: 8 Heart Rate 5 min: >100 bpm Resp Effort 5 min: Good Cry Reflex Irritability 5 min: Cough or Sneeze or Pulls Away Muscle Tone 5 min: Active Motion Color 5 min: Body [place], Extremities Blue Resuscitation Effort 5 min: Tactile Stimulation SCORE 5 MIN: 9 INFORMATION BABY A Gestational Age at Delivery: 38.5 Gestational Status: Early Term- 37- 38.6 Weeks Outcome : Liveborn Condition : Stable Sex: Male Sex: Male IDENTIFICATION BABY A Verification Date/Time: 12/27/2018 23:42 ID Band Number: [id number] Mother's Name Verified: Yes RN Verifying : Cornelia Rosales RN/ C. Raviilin RN WEIGHT/LENGTH BABY A Birthweight (gm): 3092 Weight (lb): 6 Infant Weight (oz): 13 Length (in): 20.00 Length (cm): 50.80 CORD INFORMATION BABY A No. Cord Vessels: 3 Nuchal Cord : N/A Cord Blood Taken: Yes-For Storage (Mom's Blood type +) ASSESSMENT BABY A Skin to Skin: Yes BABY B INFORMATION : N/A SIGNATURES Signature: with User ID: [email or web address]
== END 2018-12-29 19:25 | disposition home or self-care (01) | DRG 807 ==
LOC: LR 15:38 → 2S 12-28 17:40
PROVIDERS: ADMIT Student in an Organized Health Care Education/Training Program; ATTEND Student in an Organized Health Care Education/Training Program
PROC: 10E0XZZ Delivery of Products of Conception, External Approach (ICD-10-PCS; principal; 2018-12-27)
PROC: 0UQGXZZ Repair Vagina, External Approach (ICD-10-PCS; 2018-12-27)
DX: O13.4 Gestational [pregnancy-induced] hypertension without significant proteinuria, complicating childbirth (principal); Z37.0 Single live birth; O99.284 Endocrine, nutritional and metabolic diseases complicating childbirth; E28.2 Polycystic ovarian syndrome; O14.94 Unspecified pre-eclampsia, complicating childbirth; O69.81X0 Labor and delivery complicated by cord around neck, without compression, not applicable or unspecified; O71.4 Obstetric high vaginal laceration alone; Z3A.38 38 weeks gestation of pregnancy
CPT/HCPCS: 36415; 76815; 80053; 80307; 81001; 82570; 83615; 84156; 84550; 85025; 85027; 86592; 86850; 86900; 86901; J2300; J2590; J3010; J3490